=== PATIENT | female | born 1965 | race Caucasian/White ===

== ENCOUNTER 2016-11-02 16:36 | Inpatient (IN) | payer OTHER ==
[~2016-11-02] VITALS: Ht 162.6 cm; Wt 87.2 kg
[2016-11-02 18:26] LABS: HEMOGLOBIN 15.1 g/dL (11.7-16.4)
[2016-11-02 18:39] LABS: BLOOD UREA NITROGEN 5 mg/dL (7-18)
[2016-11-02 18:46] LABS: ASPARTATE AMINO TRANSFERASE 15 U/L (15-37); IS PT STATUS REG ER OR PRE ER? YES
[2016-11-02] MEDS ORDERED: AZITHROMYCIN 500 MG TABLET PO ONE (19:30)
[2016-11-02] MEDS ORDERED: ALBUTEROL/IPRATROPIUM 2.5MG/0.5MG, 3 ML ONE (19:30)
[2016-11-02] MEDS ORDERED: ALBUTEROL/IPRATROPIUM 2.5MG/0.5MG, 3 ML NPPB ONE (19:30)
[2016-11-02] MEDS ORDERED: AZITHROMYCIN 250 MG TABLET ONE (19:38)
[2016-11-02] MEDS ORDERED: MAALOX/HYOSCYAMINE/LIDOCAINE 45 ML BOTTLE ONE (19:43)
[2016-11-02] MEDS ORDERED: MAALOX/HYOSCYAMINE/LIDOCAINE 45 ML BOTTLE PO ONE (20:00)
[2016-11-02] MEDS ORDERED: SODIUM CHLORIDE 0.9% 1,000ML IVBOLUS ONE (21:00)
[2016-11-02] MEDS ORDERED: ASPIRIN 81 MG TABLET CHEW PO ONE (21:00)
[2016-11-02] MEDS ORDERED: SODIUM CHLORIDE FLUSH 10ML SYR IVF ONE (21:00)
[2016-11-02] MEDS ORDERED: ASPIRIN 81 MG TABLET CHEW ONE (21:16)
[2016-11-02] MEDS ORDERED: NICOTINE 14MG/24 HR PATCH.TD24 TD ONE (21:30)
[2016-11-02] MEDS ORDERED: LORazepam 2 MG/ML, 1ML IVPush ONE (21:30)
[2016-11-02] MEDS ORDERED: NICOTINE 14MG/24 HR PATCH.TD24 ONE (22:04)
[2016-11-02] MEDS ORDERED: LORazepam 2 MG/ML, 1ML ONE (22:05)
[2016-11-02] MEDS ORDERED: POLYETHYLENE GLYCOL 17 GM PACKET PO PRN (23:00)
[2016-11-02] MEDS ORDERED: NICOTINE 14MG/24 HR PATCH.TD24 TD SCH (23:00)
[2016-11-02] MEDS ORDERED: TRAZODONE 50MG TABLET PO PRN (23:00)
[2016-11-02] MEDS ORDERED: ALBUTEROL/IPRATROPIUM 2.5MG/0.5MG, 3 ML NPPB PRN (23:00)
[2016-11-02] MEDS ORDERED: BISACODYL 10 MG SUPP PR PRN (23:00)
[2016-11-02] MEDS ORDERED: ONDANSETRON ODT 4 MG PO PRN (23:00)
[2016-11-02 23:05] VITALS: BP 139/84
[2016-11-02] MEDS: SODIUM CHLORIDE 0.9% 1,000 ML IV SCH (23:54)
[2016-11-02] MEDS: ENOXAPARIN 40 MG/0.4 ML SQ SCH (23:55)
[2016-11-03 01:03] VITALS: BP 99/58
[2016-11-03 01:08] VITALS: BP 124/69
[2016-11-03 05:39] LABS: BLOOD UREA NITROGEN 8 mg/dL (7-18)
[2016-11-03 05:52] LABS: ASPARTATE AMINO TRANSFERASE 14 U/L (15-37)
[2016-11-03] MEDS: ALBUTEROL/IPRATROPIUM 2.5MG/0.5MG, 3 ML NPPB SCH ×4 (07:45→20:10)
[2016-11-03 07:54] VITALS: BP 148/86
[2016-11-03] MEDS: ACETAMINOPHEN 325 MG TABLET PO PRN ×2 (09:47→20:45)
[2016-11-03] MEDS: AZITHROMYCIN 500 MG TABLET PO SCH (09:47)
[2016-11-03] MEDS: SODIUM CHLORIDE 0.9% 1,000 ML IV SCH ×2 (09:48→23:39)
[2016-11-03 12:45] VITALS: BP 124/77
[2016-11-03 20:00] VITALS: BP 114/71
[2016-11-03] MEDS: NICOTINE 21 MG/24 HR PATCH.TD24 TD SCH (20:45)
[2016-11-03] MEDS: ENOXAPARIN 40 MG/0.4 ML SQ SCH (23:00)
[2016-11-03] MEDS: OXYcodone IR 5MG TABLET PO PRN (23:37)
[2016-11-03] MEDS: GUAIFENESIN/DM 200-20MG, 10ML UDC PO PRN (23:38)
[2016-11-04 02:00] VITALS: BP 111/71
[2016-11-04 07:46] VITALS: BP 133/84
[2016-11-04] MEDS: AZITHROMYCIN 500 MG TABLET PO SCH (07:50)
[2016-11-04] MEDS: ACETAMINOPHEN 325 MG TABLET PO PRN (07:50)
[2016-11-04] MEDS: GUAIFENESIN/DM 200-20MG, 10ML UDC PO PRN (07:53)
[2016-11-04] MEDS: OXYcodone IR 5MG TABLET PO PRN ×3 (09:38→23:57)
[2016-11-04] MEDS: ALBUTEROL/IPRATROPIUM 2.5MG/0.5MG, 3 ML NPPB SCH ×3 (09:55→20:32)
[2016-11-04] MEDS: methylPREDNISolone SOD SUCC 125 MG/2 ML IVPush SCH ×2 (13:34→20:06)
[2016-11-04 13:48] VITALS: BP 124/78
[2016-11-04] MEDS: GUAIFENESIN 100 MG/5 ML, 10ML UDC PO SCH ×3 (14:44→22:00)
[2016-11-04 18:33] VITALS: BP 143/79
[2016-11-04] MEDS: NICOTINE 21 MG/24 HR PATCH.TD24 TD SCH (20:12)
[2016-11-04] MEDS: ENOXAPARIN 40 MG/0.4 ML SQ SCH (20:26)
[2016-11-05 02:26] VITALS: BP 138/81
[2016-11-05] MEDS: methylPREDNISolone SOD SUCC 125 MG/2 ML IVPush SCH ×4 (02:47→20:14)
[2016-11-05] MEDS: GUAIFENESIN 100 MG/5 ML, 10ML UDC PO SCH ×5 (02:47→20:14)
[2016-11-05] MEDS: ALBUTEROL/IPRATROPIUM 2.5MG/0.5MG, 3 ML NPPB SCH ×4 (06:54→20:46)
[2016-11-05] MEDS: OXYcodone IR 5MG TABLET PO PRN ×2 (07:13→12:36)
[2016-11-05 07:28] VITALS: BP 154/81
[2016-11-05] MEDS: AZITHROMYCIN 500 MG TABLET PO SCH (08:26)
[2016-11-05] MEDS: ACETAMINOPHEN 325 MG TABLET PO PRN (10:48)
[2016-11-05 16:51] VITALS: BP 128/78
[2016-11-05] MEDS: NICOTINE 21 MG/24 HR PATCH.TD24 TD SCH ×2 (17:12→20:15)
[2016-11-05] MEDS: CEFTRIAXONE PMX 1GM/50ML 50 ML IV SCH (20:14)
[2016-11-05] MEDS: ENOXAPARIN 40 MG/0.4 ML SQ SCH (20:31)
[2016-11-05 21:09] VITALS: BP 135/72
[2016-11-06] MEDS: ACETAMINOPHEN 325 MG TABLET PO PRN (00:02)
[2016-11-06] MEDS: GUAIFENESIN 100 MG/5 ML, 10ML UDC PO SCH ×6 (00:02→23:33)
[2016-11-06 02:00] VITALS: BP 145/87
[2016-11-06] MEDS: methylPREDNISolone SOD SUCC 125 MG/2 ML IVPush SCH ×3 (02:14→20:23)
[2016-11-06] MEDS: OXYcodone IR 5MG TABLET PO PRN ×4 (02:16→20:23)
[2016-11-06] MEDS: ALBUTEROL/IPRATROPIUM 2.5MG/0.5MG, 3 ML NPPB SCH ×4 (06:51→21:37)
[2016-11-06 07:10] VITALS: BP 138/83
[2016-11-06] MEDS: AZITHROMYCIN 500 MG TABLET PO SCH (08:26)
[2016-11-06] MEDS: PANTOPROZOLE 40MG TABLET PO SCH (11:39)
[2016-11-06 13:00] VITALS: BP 122/70
[2016-11-06] MEDS: BENZONATATE 100 MG CAPSULE PO SCH ×3 (14:46→20:22)
[2016-11-06 20:00] VITALS: BP 154/79
[2016-11-06] MEDS: NICOTINE 21 MG/24 HR PATCH.TD24 TD SCH (20:22)
[2016-11-06] MEDS: CEFTRIAXONE PMX 1GM/50ML 50 ML IV SCH (20:22)
[2016-11-06] MEDS: ENOXAPARIN 40 MG/0.4 ML SQ SCH (20:23)
[2016-11-06] MEDS: DOCUSATE 100 MG CAPSULE PO PRN (21:01)
[2016-11-07 02:00] VITALS: BP 131/78
[2016-11-07] MEDS: OXYcodone IR 5MG TABLET PO PRN ×4 (04:26→21:30)
[2016-11-07] MEDS: GUAIFENESIN 100 MG/5 ML, 10ML UDC PO SCH ×4 (04:26→23:08)
[2016-11-07] MEDS: ALBUTEROL/IPRATROPIUM 2.5MG/0.5MG, 3 ML NPPB SCH ×4 (06:55→21:35)
[2016-11-07 07:00] VITALS: BP 117/82
[2016-11-07] MEDS: PANTOPROZOLE 40MG TABLET PO SCH (07:54)
[2016-11-07] MEDS: BENZONATATE 100 MG CAPSULE PO SCH (07:54)
[2016-11-07] MEDS: AZITHROMYCIN 500 MG TABLET PO SCH (07:55)
[2016-11-07] MEDS: methylPREDNISolone SOD SUCC 125 MG/2 ML IVPush SCH ×2 (07:58→21:17)
[2016-11-07] MEDS ORDERED: FUROSEMIDE 40 MG/4 ML IV ONE (10:30)
[2016-11-07] MEDS: OXYBUTYNIN CHLORIDE 5 MG TABLET PO SCH ×3 (11:30→21:17)
[2016-11-07 12:46] VITALS: BP 134/82
[2016-11-07] MEDS: ENOXAPARIN 40 MG/0.4 ML SQ SCH ×2 (21:00→21:16)
[2016-11-07] MEDS: CEFTRIAXONE PMX 1GM/50ML 50 ML IV SCH (21:16)
[2016-11-07] MEDS: NICOTINE 21 MG/24 HR PATCH.TD24 TD SCH (21:17)
[2016-11-07 21:26] VITALS: BP 113/78
[2016-11-07] MEDS: ACETAMINOPHEN 325 MG TABLET PO PRN (23:13)
[2016-11-08 02:00] VITALS: BP 131/80
[2016-11-08] MEDS: OXYcodone IR 5MG TABLET PO PRN ×4 (04:57→22:00)
[2016-11-08] MEDS: GUAIFENESIN 100 MG/5 ML, 10ML UDC PO SCH ×4 (04:57→23:45)
[2016-11-08 05:06] LABS: HEMOGLOBIN 13.8 g/dL (11.7-16.4)
[2016-11-08 05:30] LABS: BLOOD UREA NITROGEN 19 mg/dL (7-18)
[2016-11-08 06:57] VITALS: BP 120/78
[2016-11-08] MEDS: methylPREDNISolone SOD SUCC 125 MG/2 ML IVPush SCH ×2 (08:14→20:13)
[2016-11-08] MEDS: PANTOPROZOLE 40MG TABLET PO SCH (08:14)
[2016-11-08] MEDS: FUROSEMIDE 20 MG TABLET PO SCH (08:14)
[2016-11-08] MEDS: DOCUSATE 100 MG CAPSULE PO PRN (08:14)
[2016-11-08] MEDS: AZITHROMYCIN 500 MG TABLET PO SCH (08:14)
[2016-11-08] MEDS: OXYBUTYNIN CHLORIDE 5 MG TABLET PO SCH ×3 (08:14→20:12)
[2016-11-08] MEDS: ALBUTEROL/IPRATROPIUM 2.5MG/0.5MG, 3 ML NPPB SCH ×4 (08:40→19:40)
[2016-11-08] MEDS ORDERED: OXYB5TAB7 PO (10:39)
[2016-11-08] MEDS ORDERED: OXYC5TAB3 PO (10:39)
[2016-11-08] MEDS ORDERED: CEFD300C2 PO (10:39)
[2016-11-08] MEDS ORDERED: ALBU8.5H3 INH (10:39)
[2016-11-08] MEDS ORDERED: PRED10TA PO (10:39)
[2016-11-08] MEDS ORDERED: FURO20TA3 PO (10:39)
[2016-11-08] MEDS ORDERED: PANT40TA5 PO (10:39)
[2016-11-08] MEDS ORDERED: GUAI100L11 PO (10:39)
[2016-11-08] MEDS ORDERED: IPRA3AMP NPPB (10:39)
[2016-11-08] MEDS ORDERED: OMNIPAQUE 350 MG/ML, 100ML BOTTLE ONE (18:58)
[2016-11-08 20:01] VITALS: BP 144/88
[2016-11-08] MEDS: CEFTRIAXONE PMX 1GM/50ML 50 ML IV SCH (20:12)
[2016-11-08] MEDS: NICOTINE 21 MG/24 HR PATCH.TD24 TD SCH (20:13)
[2016-11-08] MEDS: ENOXAPARIN 40 MG/0.4 ML SQ SCH ×2 (20:13→20:25)
[2016-11-09 02:27] VITALS: BP 133/80
[2016-11-09] MEDS: ACETAMINOPHEN 325 MG TABLET PO PRN (02:33)
[2016-11-09] MEDS: OXYcodone IR 5MG TABLET PO PRN ×2 (05:38→20:24)
[2016-11-09] MEDS: GUAIFENESIN 100 MG/5 ML, 10ML UDC PO SCH ×4 (05:38→23:22)
[2016-11-09 06:08] LABS: HEMOGLOBIN 14.1 g/dL (11.7-16.4)
[2016-11-09 06:27] LABS: BLOOD UREA NITROGEN 18 mg/dL (7-18)
[2016-11-09 06:44] VITALS: BP 120/65
[2016-11-09] MEDS: ALBUTEROL/IPRATROPIUM 2.5MG/0.5MG, 3 ML NPPB SCH ×4 (07:55→20:00)
[2016-11-09] MEDS: FUROSEMIDE 20 MG TABLET PO SCH (09:30)
[2016-11-09] MEDS: AZITHROMYCIN 500 MG TABLET PO SCH (09:30)
[2016-11-09] MEDS: PANTOPROZOLE 40MG TABLET PO SCH (09:31)
[2016-11-09] MEDS: OXYBUTYNIN CHLORIDE 5 MG TABLET PO SCH ×3 (09:31→20:22)
[2016-11-09] MEDS: methylPREDNISolone SOD SUCC 125 MG/2 ML IVPush SCH ×2 (09:31→20:21)
[2016-11-09] MEDS: ACETYLCYSTEINE 600 MG CAPSULE PO SCH ×2 (12:38→20:22)
[2016-11-09 13:09] VITALS: BP 127/76
[2016-11-09 20:20] VITALS: BP 129/73
[2016-11-09] MEDS: NICOTINE 21 MG/24 HR PATCH.TD24 TD SCH (20:22)
[2016-11-09] MEDS: CEFTRIAXONE PMX 1GM/50ML 50 ML IV SCH (20:22)
[2016-11-09] MEDS: ENOXAPARIN 40 MG/0.4 ML SQ SCH (20:38)
[2016-11-10 02:21] VITALS: BP 136/78
[2016-11-10] MEDS: GUAIFENESIN 100 MG/5 ML, 10ML UDC PO SCH ×2 (05:01→09:28)
[2016-11-10] MEDS: OXYcodone IR 5MG TABLET PO PRN (05:01)
[2016-11-10 05:43] LABS: HEMOGLOBIN 14.3 g/dL (11.7-16.4)
[2016-11-10 05:50] LABS: BLOOD UREA NITROGEN 17 mg/dL (7-18)
[2016-11-10 06:40] VITALS: BP 146/74
[2016-11-10] MEDS: ALBUTEROL/IPRATROPIUM 2.5MG/0.5MG, 3 ML NPPB SCH ×2 (06:55→10:40)
[2016-11-10] MEDS: PANTOPROZOLE 40MG TABLET PO SCH (09:26)
[2016-11-10] MEDS: FUROSEMIDE 20 MG TABLET PO SCH (09:27)
[2016-11-10] MEDS: OXYBUTYNIN CHLORIDE 5 MG TABLET PO SCH (09:27)
[2016-11-10] MEDS: AZITHROMYCIN 500 MG TABLET PO SCH (09:27)
[2016-11-10] MEDS: methylPREDNISolone SOD SUCC 125 MG/2 ML IVPush SCH (09:27)
[2016-11-10] MEDS: ACETYLCYSTEINE 600 MG CAPSULE PO SCH (09:27)
== END 2016-11-10 13:17 | disposition home or self-care (01) | DRG 189 ==
LOC: ED 20:33 → EDIP 20:34 → ED 21:11 → 4EST 22:32 → DCLOUNGE 11-10 12:44
PROVIDERS: ADMIT Internal Medicine; ATTEND Internal Medicine
PROC: 0T9B70Z Drainage of Bladder with Drainage Device, Via Natural or Artificial Opening (ICD-10-PCS; principal; 2016-11-07)
DX: J96.01 Acute respiratory failure with hypoxia (principal); J44.1 Chronic obstructive pulmonary disease with (acute) exacerbation; F17.210 Nicotine dependence, cigarettes, uncomplicated; R73.9 Hyperglycemia, unspecified; M54.5 Low back pain; G89.29 Other chronic pain; R10.11 Right upper quadrant pain; R10.13 Epigastric pain; Z90.49 Acquired absence of other specified parts of digestive tract; Z90.89 Acquired absence of other organs; Z82.5 Family history of asthma and other chronic lower respiratory diseases; Z98.890 Other specified postprocedural states; Z71.6 Tobacco abuse counseling
CPT/HCPCS: 36415; 71010; 71020; 71275; 76700; 80048; 80053; 81003; 82565; 82962; 84439; 84443; 84484; 85025; 87070; 87205; 93005; 93306; 94640; 96374; J0696; J1650; J1940; J7620; Q9967; J2060; J2930; J7030; J7512

== ENCOUNTER 2017-03-30 16:17 | Emergency (ER) | payer OTHER ==
[~2017-03-30] VITALS: Ht 162.6 cm; Wt 85.1 kg
[~2017-03-30 16:17] MED LIST: ALBU8.5H3 INH; CEFD300C37 PO; FURO20TA3 PO; GUAI100L11 PO; IPRA3AMP NPPB; OXYB5TAB7 PO; OXYC5TAB3 PO; PANT40TA5 PO; PRED10TA PO
[2017-03-30] MEDS ORDERED: ALBUTEROL/IPRATROPIUM 2.5MG/0.5MG, 3 ML NPPB ONE (16:30)
[2017-03-30 16:58] LABS: HEMATOCRIT 48.4 % (34.6-47.8); WHITE BLOOD COUNT 9.6 x10^3/uL (3.4-10)
[2017-03-30 17:11] LABS: BLOOD UREA NITROGEN 5 mg/dL (7-18)
[2017-03-30 17:17] LABS: IS PT STATUS REG ER OR PRE ER? YES
[2017-03-30 19:00] VITALS: BP 123/82
== END 2017-03-30 19:12 | disposition home or self-care (01) ==
LOC: ED 18:57
DX: J44.9 Chronic obstructive pulmonary disease, unspecified (principal); Z87.891 Personal history of nicotine dependence
CPT/HCPCS: 36415; 71020; 80048; 82040; 83880; 84484; 85025; 93005; 99285

== ENCOUNTER 2019-03-13 13:47 | Emergency (ER) | payer SELFPAY ==
[~2019-03-13] VITALS: Ht 165.1 cm; Wt 76.0 kg
[~2019-03-13 13:47] MED LIST changes: -ALBU8.5H3 INH; +ALBU8.5H8 INH; -IPRA3AMP NPPB; +IPRA3AMP30 NPPB
[2019-03-13 14:44] LABS: BASOPHILS # (AUTO) 0.03 x10^3/uL (0-0.1); BASOPHILS % (AUTO) 0 % (0-1); EOSINOPHILS % (AUTO) 1 % (1-7); LYMPHOCYTES # (AUTO) 2.74 x10^3/uL (1-3.4); LYMPHOCYTES % (AUTO) 33 % (22-44); MD NO; MEAN CORPUSCULAR HEMOGLOBIN 30.8 pg (27.0-34.8); MEAN CORPUSCULAR HGB CONC 32.9 g/dL (32.4-35.8); MEAN CORPUSCULAR VOLUME 93.8 fL (80-100); MEAN PLATELET VOLUME 8.3 fL (7.4-10.4); MONOCYTES # (AUTO) 0.69 x10^3/uL (0.2-0.8); MONOCYTES % (AUTO) 8 % (2-9); NEUTROPHILS # (AUTO) 4.71 x10^3/uL (1.8-6.8); NEUTROPHILS % (AUTO) 57 % (42-75); PLATELET COUNT 251 x10^3/uL (130-400); RED BLOOD COUNT 5.82 x10^6/uL (3.82-5.3); RED CELL DISTRIBUTION WIDTH 13.9 % (9.6-15.2)
--- NOTE | 2019-03-13 14:49 | NUR ---
EDI DEVELOPER: PT TO ROOM FROM LOBBY
[2019-03-13 14:54] LABS: ALANINE AMINOTRANSFERASE 20 U/L (12-78); ALBUMIN 3.9 g/dL (3.4-5.0); ANION GAP 7 mmol/L (5-15); CALCIUM 9.2 mg/dL (8.5-10.1); CHLORIDE 103 mmol/L (98-107); CREATININE 0.72 mg/dL (0.55-1.02)
--- NOTE | 2019-03-13 14:55 | NUR ---
PATIENT ARRIVES WITH TWO DAYS OF SOB. SHE STATES THAT SHE HAS BEEN COUGHING STUFF UP. SHE CAME HERE FROM [place] IN 2017 AND WAS HOSPITALIZED FOR COPD. SHE WEARS OXYGEN AT HOME WHEN SHE SLEEPS, 2 LITERS. ON MONITOR, RAILS UP. NOTICIABLE WHEEZE
[2019-03-13 14:58] LABS: ALKALINE PHOSPHATASE 91 U/L (45-117); BILIRUBIN,TOTAL 0.6 mg/dL (0.2-1.0); TOTAL PROTEIN 8.1 g/dL (6.4-8.2); TROPONIN I < 0.015 ng/mL (0.000-0.045)
[2019-03-13 15:23] LABS: MICROSCOPIC AUTO
[2019-03-13 15:24] LABS: CULTURE INDICATED? YES
[2019-03-13] MEDS ORDERED: ALBUTEROL/IPRATROPIUM 2.5MG/0.5MG, 3 ML NPPB ONE (15:30)
--- NOTE | 2019-03-13 15:42 | NUR ---
PLACED TWO L OXYGEN NC FOR SAT'S 89%
[2019-03-13] MEDS ORDERED: ALBUTEROL/IPRATROPIUM 2.5MG/0.5MG, 3 ML ONE (15:56)
[2019-03-13 16:47] VITALS: BP 123/78
== END 2019-03-13 16:49 | disposition home or self-care (01) ==
LOC: ED 16:43
DX: J43.9 Emphysema, unspecified (principal); F17.200 Nicotine dependence, unspecified, uncomplicated
CPT/HCPCS: 36415; 71046; 80053; 81001; 83690; 83880; 84484; 85025; 87086; 93005; 94640; 99284; J7512; J7620